=== PATIENT | female | born 1945 | race Two or more races ===

== ENCOUNTER 2022-12-21 11:36 | Outpatient (CLI) | payer OTHER | END 2022-12-21 11:37 | disposition home or self-care (01) | LOC: CSHRAD 11:36 | PROVIDERS: ATTEND Family Medicine | DX: M54.50 Low back pain, unspecified (principal); M41.9 Scoliosis, unspecified; M47.816 Spondylosis without myelopathy or radiculopathy, lumbar region | CPT/HCPCS: 72110 ==